=== PATIENT | female | born 1950 | race Caucasian/White ===

== ENCOUNTER 2016-09-28 04:16 | Observation (INO) | payer MEDICARE, OTHER ==
[~2016-09-28] VITALS: Ht 162.6 cm; Wt 75.0 kg
[2016-09-28] VITALS (14 sets, daily range): BP systolic 95–156; BP diastolic 51–70; PULSE 86–110; RESP 14–22; TEMP 97.1–100.6; O2SAT 96–100
[~2016-09-28 04:16] MED LIST: ACET325 PO; ASPI81TA21 PO; ATOR40TA49 PO; BACL10TA PO; BISA5TAB PO; CARV3.125 PO; CLOP75 PO; FERR324T4 PO; FOLI1TAB PO; GABA300 PO; GLUCTAB PO; LEVE500 PO; LEXA20TA PO; LISI5 PO; MULT-74 PO; RANI150 PO; WELL150T PO
--- NOTE | 2016-09-28 04:44 | PD ---
HPI Chief Complaint: Altered Mental Status Time Seen by Provider: 04:42 Travel History International Travel<30 days: No Contact w/Intl Traveler<30days: No Traveled to known affect area: No History of Present Illness HPI The patient is a 66-year-old female, resident of [facility], a [facility], who normally has a DNR of 13 and decreased to 9 tonight. She was sent in for altered mental status. She is a DNR status. She apparently has had multiple strokes. The [facility] noted dark stools. PFSH Past Medical History Arthritis: Yes Asthma: No Autoimmune Disease: No Blood Disorders: No Anxiety: No Depression: Yes Heart Rhythm Problems: No Cancer: Yes (SKIN CANCER, REMOVED) Cardiovascular Problems: Yes (DE 2002) High Cholesterol: Yes Chemotherapy: No Chest Pain: No Congestive Heart Failure: Yes COPD: No Cerebrovascular Accident: Yes Diabetes: Yes Patient Takes Glucophage: Yes (METFORMIN UNKNOWN) Diminished Hearing: No Endocrine: Yes Gastrointestinal Disorders: Yes GERD: Yes Glaucoma: No Genitourinary: Yes (INCONTINENT) Headaches: No Hepatitis: No Hiatal Hernia: No Hypertension: Yes Immune Disorder: No Kidney Stones: No Musculoskeletal: No Neurologic: Yes Psychiatric: Yes Reproductive: No Respiratory: No Migraines: No Myocardial Infarction: Yes Radiation Therapy: No Renal Failure: No Seizures: Yes Sickle Cell Disease: No Sleep Apnea: No Thyroid Disease: No Ulcer: No Tubal Ligation: Yes Past Surgical History Abdominal Surgery: No AICD: No Appendectomy: No Arteriovenous Shunt: No Cardiac Surgery: Yes (CABG [place] 2002) Cholecystectomy: No Coronary Artery Bypass Graft: Yes Ear Surgery: No Endocrine Surgery: No Eye Surgery: No Genitourinary Surgery: No Gynecologic Surgery: Yes (TUBAL 1981) Insulin Pump: No Joint Replacement: No Oral Surgery: No Pacemaker: No Thoracic Surgery: Yes Other Surgery: Yes Social History Alcohol Use: No (unable to assess) Tobacco Use: No Substance Use: No Allergies-Medications (Allergen,Severity, Reaction): Coded Allergies: Benztropine (Verified Allergy, Unknown, 09/28/16) Reported Meds & Prescriptions Reported Meds & Active Scripts Active Macrobid (Nitrofurantoin Monoh/Nitrofur Macro) 100 Mg Cap 100 Mg PO BID 10 Days Reported Zantac 75 (Ranitidine HCl) 75 Mg Tab 150 Mg PO DAILY Take 30 to 60 minutes before eating food or drinking beverages that cause heartburn. Wellbutrin SR 12 HR (Bupropion HCl) 150 Mg Tab 150 Mg PO Q12HR Tramadol Hydrochloride (Tramadol HCl) 50 Mg Tab 50 Mg PO Q4HR PRN Prinivil (Lisinopril) 10 Mg Tab 10 Mg PO DAILY Plavix (Clopidogrel Bisulfate) 75 Mg Tab 75 Mg PO DAILY Neurontin (Gabapentin) 300 Mg Cap 300 Mg PO BID Multi-Minerals (Multiple Minerals) 1 Tab Tab 1 Tab PO DAILY Metformin ER (Metformin HCl) 500 Mg [place] 500 Mg PO BID With evening meal Lipitor (Atorvastatin Calcium) 40 Mg Tab 40 Mg PO HS Lexapro (Escitalopram Oxalate) 20 Mg Tab 20 Mg PO DAILY Levetiracetam 500 Mg Tab 500 Mg PO BID Iron Complex (Iron Combinations) 1 Cap Cap 325 Mg PO BID Folic Acid 5 Mg Cap Unknown Dose PO DAILY Efudex Topical (Fluorouracil Topical) 5 % Cream 1 Applic TOPICAL TID Coreg (Carvedilol) 6.25 Mg Tab 6.25 Mg PO BID Bisacodyl EC (Bisacodyl) 5 Mg Tabec 5 Mg PO BID Baclofen 10 Mg Tab 10 Mg PO BID Aspirin 81 (Aspirin) 81 Mg Tabdr 81 Mg PO DAILY Acetaminophen 500 Mg Cap Unknown Dose PO Q4-6H PRN Review of Systems ROS Limitations: Altered Mental Status, Unresponsive Except as stated in HPI: all other systems reviewed are Neg Physical Exam Exam Limitations: Altered Mental Status, Poor Historian Narrative GENERAL: The patient is unresponsive, retracts slightly to pain, has contractures on her left upper extremity and moves toes slightly to foot stimulation. Her vital signs show normal. SKIN: Focused skin assessment warm/dry. HEAD: Atraumatic. Normocephalic. EYES: Pupils equal and round. No scleral icterus. No injection or drainage. ENT: No nasal bleeding or discharge. Mucous membranes pink and moist. NECK: Trachea midline. No JVD. CARDIOVASCULAR: Regular rate and rhythm. No murmur appreciated. RESPIRATORY: No accessory muscle use. Clear to auscultation. Breath sounds equal bilaterally. GASTROINTESTINAL: Abdomen soft, non-tender, nondistended. Hepatic and splenic margins not palpable. MUSCULOSKELETAL: No obvious deformities. No clubbing. No cyanosis. No edema. NEUROLOGICAL: Vision appears comatose. No obvious cranial nerve deficits. Motor grossly within normal limits. Normal speech Data Data Last Documented VS Vital Signs Date Time Temp Pulse Resp B/P Pulse Ox O2 Delivery O2 Flow Rate FiO2 09/28/16 06:28 86 16 95/60 100 Nasal Cannula 2 09/28/16 04:41 97.3 Orders Complete Blood Count With Diff (09/28/16 04:50) Comprehensive Metabolic Panel (09/28/16 04:50) Lipase (09/28/16 04:50) Urinalysis - C+S If Indicated (09/28/16 04:50) Iv Access Insert/Monitor (09/28/16 04:50) Ecg Monitoring (09/28/16 04:50) Oximetry (09/28/16 04:50) Sodium Chlor 0.9% 1000 Ml Inj (Ns 1000 M (09/28/16 04:50) Sodium Chloride 0.9% Flush (Ns Flush) (09/28/16 05:00) Urine Culture (09/28/16 05:15) Sodium Chlor 0.9% 1000 Ml Inj (Ns 1000 M (09/28/16 06:15) Ceftriaxone Inj (Rocephin Inj) (09/28/16 06:15) Chest, Pa & Lat (09/28/16 06:25) Ct Brain W/O Iv Contrast(Rout) (09/28/16 06:45) Sodium Chloride 0.9% Flush (Ns Flush) (09/28/16 06:45) Labs Laboratory Tests Test 09/28/16 09/28/16 04:55 05:15 White Blood Count 10.5 TH/MM3 Red Blood Count 3.46 MIL/MM3 Hemoglobin 10.3 GM/DL Hematocrit 32.9 % Mean Corpuscular Volume 95.1 FL Mean Corpuscular Hemoglobin 29.8 PG Mean Corpuscular Hemoglobin 31.3 % Concent Red Cell Distribution Width 14.1 % Platelet Count 213 TH/MM3 Mean Platelet Volume 9.0 FL Neutrophils (%) (Auto) 72.0 % Lymphocytes (%) (Auto) 20.2 % Monocytes (%) (Auto) 5.2 % Eosinophils (%) (Auto) 2.1 % Basophils (%) (Auto) 0.5 % Neutrophils # (Auto) 7.6 TH/MM3 Lymphocytes # (Auto) 2.1 TH/MM3 Monocytes # (Auto) 0.5 TH/MM3 Eosinophils # (Auto) 0.2 TH/MM3 Basophils # (Auto) 0.1 TH/MM3 CBC Comment DIFF FINAL Differential Comment Sodium Level 144 MEQ/L Potassium Level 4.4 MEQ/L Chloride Level 115 MEQ/L Carbon Dioxide Level 17.8 MEQ/L Anion Gap 11 MEQ/L Blood Urea Nitrogen 41 MG/DL Creatinine 1.83 MG/DL Estimat Glomerular Filtration 27 ML/MIN Rate Random Glucose 123 MG/DL Calcium Level 8.6 MG/DL Total Bilirubin 0.2 MG/DL Aspartate Amino Transf 16 U/L (AST/SGOT) Alanine Aminotransferase 22 U/L (ALT/SGPT) Alkaline Phosphatase 64 U/L Total Protein 6.2 GM/DL Albumin 3.2 GM/DL Lipase 252 U/L Urine Color YELLOW Urine Turbidity CLOUDY Urine pH 5.0 Urine Specific [place] 1.028 Urine Protein 100 mg/dL Urine Glucose (UA) NEG mg/dL Urine Ketones NEG mg/dL Urine Occult Blood MOD Urine Nitrite NEG Urine Bilirubin NEG Urine Urobilinogen 2.0 MG/DL Urine Leukocyte Esterase LARGE Urine RBC 128 /hpf Urine WBC /hpf Urine WBC Clumps MANY Urine Squamous Epithelial 1 /hpf Cells Urine Transitional Epithelial 1 /hpf Cells Urine Renal Epithelial Cells 15 /hpf Urine Bacteria MANY /hpf Urine Hyaline Casts 30 /lpf Urine Mucus MANY /lpf Microscopic Urinalysis Comment CULTURE INDICATED MDM Medical Decision Making Medical Screen Exam Complete: Yes Emergency Medical Condition: Yes Medical Record Reviewed: Yes Interpretation(s) The Accu-Chek is 123. The complete metabolic profile shows a bicarbonate of 17.8, BUN of 41, creatinine 1.63 with GFR of 27 and total protein of 6.2 and albumin of 3.2 but is otherwise normal. The lipase is normal. Urinalysis shows cloudy turbidity, specific gravity 1.028, 100 protein, moderate occult blood with large leukocyte esterase and 128 white cells and too numerous to count white cells and many white cell clumping's and many bacteria and culture is indicated. The complete metabolic profile shows a bicarbonate 17.8, BUN of 41, creatinine 1.83 with GFR of 27 and glucose 123 and total protein 6.2 and albumin 3.2 but is otherwise normal. The lipase is normal. Differential Diagnosis Altered mental status from: Sepsis, hypoglycemia, urinary tract infection, electrolyte disorder, ischemic CVA, intracranial bleedunlikely Narrative Course The patient has an altered mental status which may be from the urinary tract infection. The patient has an inability to eat and has altered mental status. This is likely due to an ischemic CVA. A CT scan will be done. The patient was unable to take the Macrobid tablets because of inability to eat/swallow. She is also given fluids, the patient is dehydrated. It is now 0700 and the patient is transferred to Dr. Abad. Diagnosis Primary Impression: Urinary tract infection Additional Impressions: Dehydration Altered mental status Unable to eat Additional Instructions: The patient is to be given increased liquids as best as possible. The Macrobid is one tablet twice daily for 10 days. Med/Other Pt SpecificInfo: Prescription(s) given Scripts Nitrofurantoin Monohydrate Macrocrystals (Macrobid)100 Mg [id number] Mg PO BID 10 Days Ref 0 Prov:Toni Chau MD 09/28/16 Disposition: 03 DISCHARGE TO SNF Condition: Stable Toni Chau MD Sep 28, 2016 04:44
[2016-09-28] MEDS ORDERED: SODIUM CHLOR 0.9% 1000 ML INJ 1,000 ML IV SCH (04:50)
[2016-09-28] MEDS ORDERED: ACET500C PO (04:59)
[2016-09-28] MEDS ORDERED: METF500T4 PO (04:59)
[2016-09-28] MEDS ORDERED: NEUR300C PO (04:59)
[2016-09-28] MEDS ORDERED: ZANTTAB9 PO (04:59)
[2016-09-28] MEDS ORDERED: BACL10TA PO (04:59)
[2016-09-28] MEDS ORDERED: TRAM-492 PO (04:59)
[2016-09-28] MEDS ORDERED: LEVE500T8 PO (04:59)
[2016-09-28] MEDS ORDERED: FOLI5CAP PO (04:59)
[2016-09-28] MEDS ORDERED: LEXA20TA PO (04:59)
[2016-09-28] MEDS ORDERED: PLAV75TA29 PO (04:59)
[2016-09-28] MEDS ORDERED: BUPR150CR PO (04:59)
[2016-09-28] MEDS ORDERED: MULT-74 PO (04:59)
[2016-09-28] MEDS ORDERED: IRONCAP2 PO (04:59)
[2016-09-28] MEDS ORDERED: FLEE5TAB PO (04:59)
[2016-09-28] MEDS ORDERED: ASPI-110 PO (04:59)
[2016-09-28] MEDS ORDERED: CARV6.25 PO (04:59)
[2016-09-28] MEDS ORDERED: LIPI40TA PO (04:59)
[2016-09-28] MEDS ORDERED: PRIN10TA PO (04:59)
[2016-09-28] MEDS ORDERED: [UNRECOGNIZED DRUG - CODE] TOPICAL (04:59)
[2016-09-28] MEDS ORDERED: SODIUM CHLORIDE 0.9% FLUSH 10 ML FLUSH IV FLUSH PRN ×2 (05:00→08:45)
[2016-09-28 05:10] LABS: AUTOMATED NEUTROPHIL # 7.6 TH/MM3 (1.8-7.7); BASOPHIL # 0.1 TH/MM3 (0-0.2); BASOPHIL % 0.5 % (0.0-2.0); EOSINOPHIL # 0.2 TH/MM3 (0-0.4); EOSINOPHIL % 2.1 % (0.0-4.0); HEMATOCRIT 32.9 % (35.0-46.0); HEMO FLAGS DIFF FINAL; LYMPH % 20.2 % (9.0-44.0); LYMPHOCYTE # 2.1 TH/MM3 (1.0-4.8); MEAN CELL VOLUME 95.1 FL (80.0-100.0); MEAN CORPUSCULAR HEMOGLOBIN 29.8 PG (27.0-34.0); MEAN CORPUSCULAR HGB CONC 31.3 % (32.0-36.0); MONO % 5.2 % (0.0-8.0); PLATELET COUNT 213 TH/MM3 (150-450); RED BLOOD COUNT 3.46 MIL/MM3 (4.00-5.30); RED CELL DISTRIBUTION WIDTH 14.1 % (11.6-17.2); WHITE BLOOD COUNT 10.5 TH/MM3 (4.0-11.0)
[2016-09-28 05:39] LABS: ALT (GPT) 22 U/L (10-53); ANION GAP 11 MEQ/L (5-15); AST (GOT) 16 U/L (15-37); BICARBONATE 17.8 MEQ/L (21.0-32.0); BLOOD UREA NITROGEN 41 MG/DL (7-18); CHLORIDE 115 MEQ/L (98-107); GLOMERULAR FILTRATION RATE 27 ML/MIN (>89); POTASSIUM 4.4 MEQ/L (3.5-5.1); SODIUM (NA) 144 MEQ/L (136-145)
[2016-09-28 05:41] LABS: ALKALINE PHOSPHATASE 64 U/L (45-117); TOTAL BILIRUBIN ADULT 0.2 MG/DL (0.2-1.0)
[2016-09-28 05:49] LABS: BACTERIA, URINE MANY /hpf; BLOOD, URINE MOD (NEG); GLUCOSE,URINE NEG (NEG); HYALINE CAST, URINE 30 /lpf (RARE); KETONE, URINE NEG (NEG); MUCUS URINE MANY /lpf (OCC); NITRITE,URINE NEG (NEG); RENAL EPITHELIAL CELLS 15 /hpf; SQUAMOUS EPITHELIAL CELL URINE 1 /hpf (0-5); TRANSITIONAL EPI CELLS, URINE 1 /hpf; URINE COLOR YELLOW (YELLW/STRAW)
[2016-09-28 05:55] LABS: COMMENT (UR) CULTURE INDICATED; CULTURE IF INDICATED CULTURE INDICATED
[2016-09-28] MEDS ORDERED: MACR100C2 PO (06:12)
[2016-09-28] MEDS ORDERED: cefTRIAXone INJ 1,000 MG in SODIUM CHLORIDE 0.9% INJ 100 ML IV ONE (06:15)
[2016-09-28] MEDS ORDERED: SODIUM CHLOR 0.9% 1000 ML INJ 1,000 ML IV ONE (06:15)
[2016-09-28] MEDS ORDERED: SODIUM CHLORIDE 0.9% FLUSH 10 ML FLUSH IVF PRN (06:45)
--- NOTE | 2016-09-28 07:02 | RADRPT ---
EXAM DATE/TIME: 09/28/2016 06:46 [facility] COMPARISON: CHEST SINGLE AP, November 24, 2015, 10:08. INDICATIONS : Short of breath. MEDICAL HISTORY : Myocardial infarction. Hypertension SURGICAL HISTORY : CABG. ENCOUNTER: Initial ACUITY: 1 day PAIN SCORE: Non-responsive. LOCATION: Bilateral chest FINDINGS: Cardiomegaly, median sternotomy wires and mediastinal clips are noted. EKG leads overlie the chest. T he lung volumes are diminished. There is linear atelectasis in the left midlung zone. No definite con solidation or effusion. Degenerative changes of the spine. CONCLUSION: Left midlung linear atelectasis. Timothy Medrano MD on September 28, 2016 at 6:58 Board Certified Radiologist. This report was verified electronically.
--- NOTE | 2016-09-28 07:54 | RADRPT ---
EXAM DATE/TIME: 09/28/2016 07:20 [facility] COMPARISON: CT BRAIN W/O CONTRAST, November 22, 2015, 15:23. INDICATIONS : Altered mental status. RADIATION DOSE: 64.27 CTDIvol (mGy) MEDICAL HISTORY : Hypertension. Seizures. Stroke. SURGICAL HISTORY : CABG ENCOUNTER: Initial ACUITY: 1 day PAIN SCALE: Non-responsive LOCATION: cranial TECHNIQUE: Multiple contiguous axial images were obtained of the head. Using automated exposure control and adj ustment of the mA and/or kV according to patient size, radiation dose was kept as low as reasonably a chievable to obtain optimal diagnostic quality images. FINDINGS: CEREBRUM: There is generalized atrophy with large area of encephalomalacia involving the right frontal and temp oral lobe with mild expected dilatation of the right lateral ventricle. There is calcification in the right frontal lobe. Right cerebral peduncle is atrophic. No evidence of midline shift, mass lesion, hemorrhage or acute infarction. No extra-axial fluid collections are seen. POSTERIOR FOSSA: The cerebellum and brainstem demonstrate no acute finding. The 4th ventricle is midline. The cerebe llopontine angle is unremarkable. EXTRACRANIAL: There is there complete opacification of the right maxillary sinus. SKULL: The calvaria is intact. No evidence of skull fracture. CONCLUSION: 1. Stable noncontrast head CT with large area of encephalomalacia involving the right frontal and tem poral lobe. No acute finding is identified. 2. Near complete opacification of the right maxillary sinus. Taran Anderson MD on September 28, 2016 at 7:49 Board Certified Radiologist. This report was verified electronically.
--- NOTE | 2016-09-28 08:40 | PD ---
Physical Exam Date Seen by Provider: Sep 28, 2016 Time Seen by Provider: 07:00 Narrative Patient signed out to me by Dr. Chau at 7 AM, please see his note for further details. Here for altered mental status from snf facility, apparently has a UTI, elevated BUN and creatinine concerning for underlying dehydration, and was plan for admission but is awaiting CT of the brain to rule out acute intracranial processes. Case initially had been [facility] with [facility] but admission is pending based on pending CT. Laboratory Tests Test 09/28/16 09/28/16 04:55 05:15 Red Blood Count 3.46 MIL/MM3 (4.00-5.30) Hemoglobin 10.3 GM/DL (11.6-15.3) Hematocrit 32.9 % (35.0-46.0) Mean Corpuscular Hemoglobin 31.3 % Concent (32.0-36.0) Neutrophils (%) (Auto) 72.0 % (16.0-70.0) Chloride Level 115 MEQ/L (98-107) Carbon Dioxide Level 17.8 MEQ/L (21.0-32.0) Blood Urea Nitrogen 41 MG/DL (7-18) Creatinine 1.83 MG/DL (0.50-1.00) Estimat Glomerular Filtration 27 ML/MIN (>89) Rate Random Glucose 123 MG/DL (74-106) Total Protein 6.2 GM/DL (6.4-8.2) Albumin 3.2 GM/DL (3.4-5.0) Urine Turbidity CLOUDY (CLEAR) Urine Protein 100 mg/dL (NEG-TRACE) Urine Occult Blood MOD (NEG) Urine Leukocyte Esterase LARGE (NEG) Urine RBC 128 /hpf (0-3) Urine WBC Clumps MANY (NONE) Urine Bacteria MANY /hpf (NONE) Urine Mucus MANY /lpf (OCC) Last [address] 09/28/16 0645 Signed Impressions: Service Date/Time: September 07:20 - CONCLUSION: 1. Stable noncontrast head CT with large area of encephalomalacia involving the right frontal and temporal lobe. No acute finding is identified. 2. Near complete opacification of the right maxillary sinus. Taran Anderson MD Chest X-Ray 09/28/16 0655 Signed Impressions: Service Date/Time: September 06:46 - CONCLUSION: Left midlung linear atelectasis. Timothy Medrano MD CT of the brain returns negative for any signs of acute processes. Patient has no focal neurological symptoms. Vital signs the been stable overnight. She had been given IV antibiotics and IV fluids in the ER. At this point, my plan would be to admit the patient for further treatment. Case was discussed with Dr. Wiggins for admission. Data Data Last Documented VS Vital Signs Date Time Temp Pulse Resp B/P Pulse Ox O2 Delivery O2 Flow Rate FiO2 09/28/16 07:33 88 17 99 Nasal Cannula 2 09/28/16 04:41 97.3 Orders Complete Blood Count With Diff (09/28/16 04:50) Comprehensive Metabolic Panel (09/28/16 04:50) Lipase (09/28/16 04:50) Urinalysis - C+S If Indicated (09/28/16 04:50) Iv Access Insert/Monitor (09/28/16 04:50) Ecg Monitoring (09/28/16 04:50) Oximetry (09/28/16 04:50) Sodium Chlor 0.9% 1000 Ml Inj (Ns 1000 M (09/28/16 04:50) Sodium Chloride 0.9% Flush (Ns Flush) (09/28/16 05:00) Urine Culture (09/28/16 05:15) Sodium Chlor 0.9% 1000 Ml Inj (Ns 1000 M (09/28/16 06:15) Ceftriaxone Inj (Rocephin Inj) (09/28/16 06:15) Chest, Pa & Lat (09/28/16 06:25) Ct Brain W/O Iv Contrast(Rout) (09/28/16 06:45) Sodium Chloride 0.9% Flush (Ns Flush) (09/28/16 06:45) Electrocardiogram (09/28/16 04:21) Admit Order (Ed Use Only) (09/28/16 08:37) Labs Laboratory Tests Test 09/28/16 09/28/16 04:55 05:15 White Blood Count 10.5 TH/MM3 Red Blood Count 3.46 MIL/MM3 Hemoglobin 10.3 GM/DL Hematocrit 32.9 % Mean Corpuscular Volume 95.1 FL Mean Corpuscular Hemoglobin 29.8 PG Mean Corpuscular Hemoglobin 31.3 % Concent Red Cell Distribution Width 14.1 % Platelet Count 213 TH/MM3 Mean Platelet Volume 9.0 FL Neutrophils (%) (Auto) 72.0 % Lymphocytes (%) (Auto) 20.2 % Monocytes (%) (Auto) 5.2 % Eosinophils (%) (Auto) 2.1 % Basophils (%) (Auto) 0.5 % Neutrophils # (Auto) 7.6 TH/MM3 Lymphocytes # (Auto) 2.1 TH/MM3 Monocytes # (Auto) 0.5 TH/MM3 Eosinophils # (Auto) 0.2 TH/MM3 Basophils # (Auto) 0.1 TH/MM3 CBC Comment DIFF FINAL Differential Comment Sodium Level 144 MEQ/L Potassium Level 4.4 MEQ/L Chloride Level 115 MEQ/L Carbon Dioxide Level 17.8 MEQ/L Anion Gap 11 MEQ/L Blood Urea Nitrogen 41 MG/DL Creatinine 1.83 MG/DL Estimat Glomerular Filtration 27 ML/MIN Rate Random Glucose 123 MG/DL Calcium Level 8.6 MG/DL Total Bilirubin 0.2 MG/DL Aspartate Amino Transf 16 U/L (AST/SGOT) Alanine Aminotransferase 22 U/L (ALT/SGPT) Alkaline Phosphatase 64 U/L Total Protein 6.2 GM/DL Albumin 3.2 GM/DL Lipase 252 U/L Urine Color YELLOW Urine Turbidity CLOUDY Urine pH 5.0 Urine Specific [place] 1.028 Urine Protein 100 mg/dL Urine Glucose (UA) NEG mg/dL Urine Ketones NEG mg/dL Urine Occult Blood MOD Urine Nitrite NEG Urine Bilirubin NEG Urine Urobilinogen 2.0 MG/DL Urine Leukocyte Esterase LARGE Urine RBC 128 /hpf Urine WBC /hpf Urine WBC Clumps MANY Urine Squamous Epithelial 1 /hpf Cells Urine Transitional Epithelial 1 /hpf Cells Urine Renal Epithelial Cells 15 /hpf Urine Bacteria MANY /hpf Urine Hyaline Casts 30 /lpf Urine Mucus MANY /lpf Microscopic Urinalysis Comment CULTURE INDICATED MDM Medical Record Reviewed: Yes Supervised Visit with DUSTIN: No Diagnosis Primary Impression: Urinary tract infection Additional Impressions: Altered mental status Unable to eat Dehydration Admitting Information Admitting Physician Requests: Admit Additional Instruction: The patient is to be given increased liquids as best as possible. The Macrobid is one tablet twice daily for 10 days. Scripts Nitrofurantoin Monohydrate Macrocrystals (Macrobid)100 Mg [id number] Mg PO BID 10 Days Ref 0 Prov:Toni Chau MD 09/28/16 Disposition: 03 DISCHARGE TO SNF Condition: Stable Akhil Colmenares MD Sep 28, 2016 08:40
[2016-09-28] MEDS ORDERED: NALOXONE HCL 0.4 MG/ML AMP IV PRN (08:45)
[2016-09-28] MEDS ORDERED: GLUCAGON 1 MG/ML VIAL OTHER PRN (08:45)
[2016-09-28] MEDS ORDERED: hydrALAZINE HCL 20 MG/ML VIAL IV PRN (08:45)
[2016-09-28] MEDS ORDERED: BISACODYL 10 MG SUPP RECTAL PRN (08:45)
[2016-09-28] MEDS ORDERED: DEXTROSE 50% IN WATER 50 ML VIAL(D50) IV PUSH PRN (08:45)
[2016-09-28] MEDS ORDERED: SENNOSIDES 8.6 MG TAB PO PRN (08:45)
[2016-09-28] MEDS ORDERED: ONDANSETRON HCL 4 MG/2 ML VIAL IVP PRN (08:45)
[2016-09-28] MEDS ORDERED: cloNIDine HCL 0.1 MG TAB PO PRN (08:45)
[2016-09-28] MEDS ORDERED: ACETAMINOPHEN 325 MG TAB PO PRN (08:45)
[2016-09-28] MEDS: SODIUM CHLORIDE 0.9% FLUSH 10 ML FLUSH IV FLUSH SCH ×2 (09:00→21:00)
[2016-09-28] MEDS ORDERED: levETIRAcetam 500 MG TAB PO SCH (09:00)
[2016-09-28] MEDS: GABAPENTIN 300 MG CAP PO SCH ×2 (09:00→21:00)
[2016-09-28] MEDS: BISACODYL EC 5 MG TABEC PO SCH ×2 (09:00→21:00)
[2016-09-28] MEDS: ESCITALOPRAM OXALATE 20 MG TAB PO SCH (09:00)
[2016-09-28] MEDS: CARVEDILOL 3.125 MG TAB PO SCH ×2 (10:00→21:00)
[2016-09-28] MEDS: FAMOTIDINE 20 MG TAB PO SCH ×2 (10:15→21:00)
[2016-09-28] MEDS ORDERED: PILL SPLITTER OTHER PRN (10:15)
[2016-09-28] MEDS ORDERED: traMADol HCL 50 MG TAB PO PRN (10:15)
[2016-09-28] MEDS: buPROPion HCL 150 MG SUSTAINED RELEASE TAB PO SCH ×2 (10:30→21:00)
[2016-09-28] MEDS ORDERED: levETIRAcetam INJ 500 MG in SODIUM CHLORIDE 0.9% INJ 100 ML IV PRN (10:30)
[2016-09-28] MEDS ORDERED: PANTOPRAZOLE SODIUM 40 MG VIAL IV PUSH PRN (10:30)
--- NOTE | 2016-09-28 10:48 | HHI.HP ---
HPI Service [facility] Primary Care Physician Brian Kelly MD Admission Diagnosis altered mental status/UTI Diagnoses: Chief Complaint: Altered mental status Travel History International Travel<30 Days: No Contact w/Intl Traveler <30 Da: No Traveled to Known Affected Are: No Sepsis Criteria SIRS Criteria (2 or more): Heart rate over 90 Sepsis Criteria (SIRS+source): Infect source susp/known History of Present Illness This is a [place] patient who was sent in for altered mental status. Usually has GCS of 13-14 but down to 9. ER workup shows abnormal urinalysis and was given IV Rocephin. She was also noted to be dehydrated with elevated BUN and received a total of 2 L IV fluid. Reportedly had a large black stool, patient on iron. At this time, patient is awake but not responsive and not following commands. She is contracted involving the left upper and left lower extremities. Left message with healthcare surrogate Ronit. Outside records reviewed. Case discussed with ER MBárbara. and RN. Noted to be tachypneic with audible crackles. Requested IV fluid to be discontinued and will give stat dose of IV Lasix. She has a DNR status. S Review of Systems ROS Limitations: Altered Mental Status Constitutional: DENIES: Diaphoretic episodes, Fatigue, Fever, Weight gain, Weight loss, Chills, Dizziness, Change in appetite, Night Sweats Endocrine: DENIES: Heat/cold intolerance, Polydipsia, Polyuria, Polyphagia Eyes: DENIES: Blurred vision, Diplopia, Vision loss, Photosensitivity Ears, nose, mouth, throat: DENIES: Tinnitus, Vertigo, Throat pain, Hoarseness, Epistaxis, Odynophagia Respiratory: DENIES: Cough, Wheezing, Hemoptysis, Sputum production, Shortness of breath Cardiovascular: DENIES: Chest pain, Palpitations, Syncope, Dyspnea on Exertion , PND, Lower Extremity Edema, Orthopnea, Claudication Gastrointestinal: DENIES: Abdominal pain, Black stools, Bloody stools, Constipation, Diarrhea, Nausea, Vomiting, Difficulty Swallowing, Anorexia Genitourinary: DENIES: Urinary frequency, Urinary incontinence, Urgency, Hematuria, Dysuria, Nocturia, Vaginal discharge Integumentary: DENIES: Rash Neurologic: COMPLAINS OF: Abnormal gait, Localized weakness, DENIES: Headache , Seizures, Tremor, Poor Balance Psychiatric: DENIES: Anxiety, Confusion, Depression, Hallucinations, Agitation , Suicidal Ideation, Homicidal Ideation, Delusions Past Family Social History Past Medical History Multiple CVA, arthritis, depression, skin cancer status post removal, coronary artery disease status post [place], hyperlipidemia, systolic heart failure, diabetes mellitus on metformin, GERD, urinary incontinence, hypertension and seizure disorder Past Surgical History CABG, tubal ligation Reported Medications Macrobid (Nitrofurantoin Monoh/Nitrofur Macro) 100 Mg Cap 100 Mg PO BID 10 Days Zantac 75 (Ranitidine HCl) 75 Mg Tab 150 Mg PO DAILY Take 30 to 60 minutes before eating food or drinking beverages that cause heartburn. Wellbutrin SR 12 HR (Bupropion HCl) 150 Mg Tab 150 Mg PO Q12HR Tramadol Hydrochloride (Tramadol HCl) 50 Mg Tab 50 Mg PO Q4HR PRN Prinivil (Lisinopril) 10 Mg Tab 10 Mg PO DAILY Plavix (Clopidogrel Bisulfate) 75 Mg Tab 75 Mg PO DAILY Neurontin (Gabapentin) 300 Mg Cap 300 Mg PO BID Multi-Minerals (Multiple Minerals) 1 Tab Tab 1 Tab PO DAILY Metformin ER (Metformin HCl) 500 Mg Humble 500 Mg PO BID With evening meal Lipitor (Atorvastatin Calcium) 40 Mg Tab 40 Mg PO HS Lexapro (Escitalopram Oxalate) 20 Mg Tab 20 Mg PO DAILY Levetiracetam 500 Mg Tab 500 Mg PO BID Iron Complex (Iron Combinations) 1 Cap Cap 325 Mg PO BID Folic Acid 5 Mg Cap Unknown Dose PO DAILY Efudex Topical (Fluorouracil Topical) 5 % Cream 1 Applic TOPICAL TID Coreg (Carvedilol) 6.25 Mg Tab 6.25 Mg PO BID Bisacodyl EC (Bisacodyl) 5 Mg Tabec 5 Mg PO BID Baclofen 10 Mg Tab 10 Mg PO BID Aspirin 81 (Aspirin) 81 Mg Tabdr 81 Mg PO DAILY Acetaminophen 500 Mg Cap Unknown Dose PO Q4-6H PRN Allergies: Coded Allergies: Benztropine (Verified Allergy, Unknown, 09/28/16) Family History Patient nonverbal Social History Does not smoke and drink Physical Exam Vital Signs Vital Signs Date Time Temp Pulse Resp B/P Pulse Ox O2 Delivery O2 Flow Rate FiO2 09/28/16 10:22 102 20 122/66 99 Nasal Cannula 2 09/28/16 07:33 88 17 99 Nasal Cannula 2 09/28/16 07:30 17 98 Nasal Cannula 2 09/28/16 06:28 86 16 95/60 100 Nasal Cannula 2 09/28/16 06:00 86 20 98 Nasal Cannula 2 09/28/16 04:41 97.3 09/28/16 04:23 93 14 118/63 100 Physical Exam GENERAL: This is a well-nourished, well-developed patient, in no mild distress with tachypnea. SKIN: No rashes, ecchymoses or lesions. Cool and dry. HEAD: Atraumatic. Normocephalic. No temporal or scalp tenderness. EYES: Pupils equal round and reactive. Extraocular motions intact. No scleral icterus. No injection or drainage. ENT: Nose without bleeding, purulent drainage or septal hematoma. Throat without erythema, tonsillar hypertrophy or exudate. Uvula midline. Airway patent. NECK: Trachea midline. No JVD or lymphadenopathy. Supple, nontender, no meningeal signs. CARDIOVASCULAR: Regular rate and rhythm without murmurs, gallops, or rubs. RESPIRATORY: Coarse breath sounds with crackles. Tachypneic GASTROINTESTINAL: Abdomen soft, non-tender, nondistended. No guarding. MUSCULOSKELETAL: Extremities without clubbing, cyanosis, or edema. No joint tenderness, effusion, or edema noted. No calf tenderness. Negative Homans sign bilaterally. NEUROLOGICAL: Awake but nonverbal and not following commands. Contracted left upper and left lower extremities. I Laboratory Laboratory Tests Test 09/28/16 09/28/16 04:55 05:15 White Blood Count 10.5 Red Blood Count 3.46 Hemoglobin 10.3 Hematocrit 32.9 Mean Corpuscular Volume 95.1 Mean Corpuscular Hemoglobin 29.8 Mean Corpuscular Hemoglobin 31.3 Concent Red Cell Distribution Width 14.1 Platelet Count 213 Mean Platelet Volume 9.0 Neutrophils (%) (Auto) 72.0 Lymphocytes (%) (Auto) 20.2 Monocytes (%) (Auto) 5.2 Eosinophils (%) (Auto) 2.1 Basophils (%) (Auto) 0.5 Neutrophils # (Auto) 7.6 Lymphocytes # (Auto) 2.1 Monocytes # (Auto) 0.5 Eosinophils # (Auto) 0.2 Basophils # (Auto) 0.1 CBC Comment DIFF FINAL Differential Comment Sodium Level 144 Potassium Level 4.4 Chloride Level 115 Carbon Dioxide Level 17.8 Anion Gap 11 Blood Urea Nitrogen 41 Creatinine 1.83 Estimat Glomerular Filtration 27 Rate Random Glucose 123 Calcium Level 8.6 Total Bilirubin 0.2 Aspartate Amino Transf 16 (AST/SGOT) Alanine Aminotransferase 22 (ALT/SGPT) Alkaline Phosphatase 64 Total Creatine Kinase 123 Total Protein 6.2 Albumin 3.2 Lipase 252 Urine Color YELLOW Urine Turbidity CLOUDY Urine pH 5.0 Urine Specific [place] 1.028 Urine Protein 100 Urine Glucose (UA) NEG Urine Ketones NEG Urine Occult Blood MOD Urine Nitrite NEG Urine Bilirubin NEG Urine Urobilinogen 2.0 Urine Leukocyte Esterase LARGE Urine RBC 128 Urine WBC Urine WBC Clumps MANY Urine Squamous Epithelial 1 Cells Urine Transitional Epithelial 1 Cells Urine Renal Epithelial Cells 15 Urine Bacteria MANY Urine Hyaline Casts 30 Urine Mucus MANY Microscopic Urinalysis Comment CULTURE INDICATED Date/Time Procedure Status Source Growth 09/28/16 05:15 Urine Culture Received Urine Clean Catch Pending Result Diagram: 09/28/16 0455 09/28/16 0455 Imaging Last Impressions Head CT 09/28/1645 Signed Impressions: Service Date/Time: September 07:20 - CONCLUSION: 1. Stable noncontrast head CT with large area of encephalomalacia involving the right frontal and temporal lobe. No acute finding is identified. 2. Near complete opacification of the right maxillary sinus. Taran Anderson MD Chest X-Ray 09/28/1625 Signed Impressions: Service Date/Time: September 06:46 - CONCLUSION: Left midlung linear atelectasis. Timothy Medrano MD Assessment and Plan Problem List: (1) Altered mental status ICD Code: R41.82 Status: Acute (2) Urinary tract infection ICD Code: N39.0 Status: Acute Assessment and Plan This is a [place] patient who was sent in for altered mental status. Has abnormal urinalysis and was given IV Rocephin. She was also noted to be dehydrated with elevated BUN and received a total of 2 L IV fluid. Reportedly had a large black stool, patient on iron. Urine tract infection. Sepsis suspect. Previous urine culture grew Proteus, we 'll continue urinalysis and monitor culture Encephalopathy likely secondary to above. Head CT without acute findings. Black stool. GI bleed suspect. Patient on iron. Blood counts stable. Continue PPI and repeat CBC in the morning. Hold antiplatelets for now aspirin and Plavix Chronic kidney disease stage 3-4. Patient received 2 L IVF. Avoid nephrotoxins. Check CK. Repeat BMP and magnesium in the morning Acute systolic heart failure secondary to fluid bolus and infection. Discontinue IV fluid and given a stat dose of Lasix 20 mg IV. CHF education, monitor weight and I/O Chronic medical conditions of Multiple CVA, arthritis, depression, skin cancer status post removal, coronary artery disease status post [place], hyperlipidemia, diabetes mellitus on metformin, GERD, urinary incontinence, hypertension and seizure disorder. Continue outpatient medications as appropriate. Monitor fingersticks with sliding scale coverage. Monitor BP with as needed antihypertensives. Seizure precautions 6 DVT prophylaxis with SCD and early ambulation. Hold pharmacological prophylaxis GI bleed suspect Awaiting return call from health care surrogate. Consider hospice Code Status DO NOT RESUSCITATE per records Discussed Condition With pt and ER staff Miles Wiggins MD Sep 28, 2016 10:48
[2016-09-28] MEDS: INSULIN ASPART SUPPLEMENTAL SCALE SQ SCH ×3 (11:28→21:00)
[2016-09-28] MEDS ORDERED: FUROSEMIDE 20 MG/2 ML VIAL IV PUSH ONE (12:30)
--- NOTE | 2016-09-28 13:59 | EKG ---
Date Performed: 09/28/2016 Time Performed: 04:21:42 PTAGE: 66 years EKG: Sinus rhythm WITH FIRST DEGREE AV BLOCK WITH OCCASIONAL VENTRICULAR PREMATURE COMPLEXES MARKED RIGHT AXIS DEVIATI ON RIGHT BUNDLE BRANCH BLOCK MODERATE T-WAVE ABNORMALITY, CONSIDER INFERIOR ISCHEMIA ABNORMAL ECG Com pared to prior tracing no significant change PREVIOUS TRACING 11/23/2015 22.30.22 DOCTOR: Brian Mendiola Interpretating Date/Time 09/28/2016 13:57:43
[2016-09-28] MEDS ORDERED: EFUDEX TOPICAL SCH (18:00)
[2016-09-28] MEDS ORDERED: ACETAMINOPHEN 650 MG SUPP RECTAL PRN (20:30)
[2016-09-28] MEDS: FERROUS SULFATE 325 MG (65 MG ELEMENTAL IRON) TAB PO SCH (21:00)
[2016-09-28] MEDS: ATORVASTATIN 40 MG TAB PO SCH (21:00)
[2016-09-28] MEDS: levETIRAcetam INJ 500 MG in SODIUM CHLORIDE 0.9% INJ 100 ML IV SCH (21:10)
[2016-09-29] VITALS (7 sets, daily range): BP systolic 78–190; BP diastolic 60–90; PULSE 70–104; RESP 18–19; TEMP 97.7–99.2; O2SAT 95–100
[2016-09-29] MEDS: cefTRIAXone INJ 1,000 MG in SODIUM CHLORIDE 0.9% INJ 100 ML IV SCH (06:38)
[2016-09-29 07:00] LABS: AUTOMATED NEUTROPHIL # 7.6 TH/MM3 (1.8-7.7); BASOPHIL % 0.4 % (0.0-2.0); EOSINOPHIL # 0.1 TH/MM3 (0-0.4); EOSINOPHIL % 0.8 % (0.0-4.0); HEMATOCRIT 31.7 % (35.0-46.0); HEMO FLAGS DIFF FINAL; LYMPH % 22.1 % (9.0-44.0); LYMPHOCYTE # 2.4 TH/MM3 (1.0-4.8); MEAN CELL VOLUME 93.8 FL (80.0-100.0); MEAN CORPUSCULAR HEMOGLOBIN 30.2 PG (27.0-34.0); MEAN CORPUSCULAR HGB CONC 32.1 % (32.0-36.0); MONO % 7.6 % (0.0-8.0); NEUT % 69.1 % (16.0-70.0); PLATELET COUNT 205 TH/MM3 (150-450); RED BLOOD COUNT 3.38 MIL/MM3 (4.00-5.30); RED CELL DISTRIBUTION WIDTH 14.2 % (11.6-17.2)
[2016-09-29] MEDS: INSULIN ASPART SUPPLEMENTAL SCALE SQ SCH ×4 (07:00→21:00)
[2016-09-29 07:29] LABS: BICARBONATE 20.1 MEQ/L (21.0-32.0); POTASSIUM 3.6 MEQ/L (3.5-5.1)
[2016-09-29] MEDS: FAMOTIDINE 20 MG TAB PO SCH ×2 (09:00→23:10)
[2016-09-29] MEDS: buPROPion HCL 150 MG SUSTAINED RELEASE TAB PO SCH ×2 (09:00→23:10)
[2016-09-29] MEDS: BISACODYL EC 5 MG TABEC PO SCH ×2 (09:00→21:00)
[2016-09-29] MEDS: ESCITALOPRAM OXALATE 20 MG TAB PO SCH (09:00)
[2016-09-29] MEDS: CARVEDILOL 3.125 MG TAB PO SCH ×2 (09:00→23:10)
[2016-09-29] MEDS: GABAPENTIN 300 MG CAP PO SCH ×2 (09:00→23:10)
[2016-09-29] MEDS: FERROUS SULFATE 325 MG (65 MG ELEMENTAL IRON) TAB PO SCH ×2 (09:00→23:10)
--- NOTE | 2016-09-29 09:59 | HHI.PR ---
Subjective Remarks Follow-up encephalopathy and UTI. She is awake and oriented to person. She is answering questions appropriately. She is also following simple commands. Agrees to have NGT if she doesn't pass swallowing. Still awaiting return healthcare surrogate. Discussed with RN, possible discharge back to SNF if she passes swallowing per ST. Discussed with case management Objective Vitals Vital Signs Date Time Temp Pulse Resp B/P Pulse Ox O2 Delivery O2 Flow Rate FiO2 09/29/16 08:19 99.2 100 18 190/88 97 09/29/16 04:05 98.6 100 19 78/ 100 09/28/16 23:57 98.6 09/28/16 22:45 22 09/28/16 22:39 97.9 110 22 156/70 97 09/28/16 21:00 110 09/28/16 20:03 100.6 106 18 132/60 98 09/28/16 14:51 97.1 105 20 127/61 99 09/28/16 13:20 96 22 111/60 96 Nasal Cannula 2 09/28/16 11:31 96 22 106/51 97 Nasal Cannula 2 09/28/16 10:22 102 20 122/66 99 Nasal Cannula 2 Result Diagram: 09/29/1618 09/29/16617 Imaging Last Impressions Head CT 09/28/16 0645 Signed Impressions: Service Date/Time: September 07:20 - CONCLUSION: 1. Stable noncontrast head CT with large area of encephalomalacia involving the right frontal and temporal lobe. No acute finding is identified. 2. Near complete opacification of the right maxillary sinus. Taran Anderson MD Chest X-Ray 09/28/1625 Signed Impressions: Service Date/Time: September 06:46 - CONCLUSION: Left midlung linear atelectasis. Timothy Medrano MD Objective Remarks GENERAL: This is a well-nourished, well-developed patient, in no distress SKIN: No rashes, ecchymoses or lesions. Cool and dry. HEAD: Atraumatic. Normocephalic. No temporal or scalp tenderness. EYES: Pupils equal round and reactive. Extraocular motions intact. No scleral icterus. No injection or drainage. ENT: Nose without bleeding, purulent drainage or septal hematoma. Throat without erythema, tonsillar hypertrophy or exudate. Uvula midline. Airway patent. NECK: Trachea midline. No JVD or lymphadenopathy. Supple, nontender, no meningeal signs. CARDIOVASCULAR: Regular rate and rhythm without murmurs, gallops, or rubs. RESPIRATORY: Decreased breath sounds GASTROINTESTINAL: Abdomen soft, non-tender, nondistended. No guarding. MUSCULOSKELETAL: Extremities without clubbing, cyanosis, or edema. No joint tenderness, effusion, or edema noted. No calf tenderness. Negative Homans sign bilaterally. NEUROLOGICAL: Awake, answering questions appropriately and following simple commands. Contracted left upper and left lower extremities. Procedures none A/P Problem List: (1) Altered mental status ICD Code: R41.82 Status: Acute (2) Urinary tract infection ICD Code: N39.0 Status: Acute Assessment and Plan This is a [place] patient who was sent in for altered mental status. Has abnormal urinalysis and was given IV Rocephin. She was also noted to be dehydrated with elevated BUN and received a total of 2 L IV fluid. Reportedly had a large black stool, patient on iron. Urine tract infection. Sepsis suspect. Previous urine culture grew Escherichia coli, we'll continue urinalysis and monitor culture negative to date Encephalopathy likely secondary to above. Head CT without acute findings. Improving I believe she is back at her baseline Black stool. GI bleed suspect. Patient on iron. Blood counts stable. Continue PPI and repeat CBC in the morning. Hold antiplatelets for now aspirin and Plavix Chronic kidney disease stage 3-4. Patient received 2 L IVF. Avoid nephrotoxins. Check CK. Repeat BMP and magnesium in the morning Acute systolic heart failure secondary to fluid bolus and infection. Improved status post stat dose of Lasix 20 mg IV. CHF education, monitor weight and I/O Chronic medical conditions of Multiple CVA, arthritis, depression, skin cancer status post removal, coronary artery disease status post [place], hyperlipidemia, diabetes mellitus on metformin, GERD, urinary incontinence, hypertension and seizure disorder. Continue outpatient medications as appropriate. Monitor fingersticks with sliding scale coverage. Monitor BP with as needed antihypertensives. Seizure precautions FEN. PO and gentle IVF DVT prophylaxis with SCD and early ambulation. Hold pharmacological prophylaxis GI bleed suspect Awaiting return call from health care surrogate. Consider hospice Discharge Planning Discharge patient to [facility] Condition on discharge: Improved Regular Diet as tolerated per ST Ad Ligia activity no driving Rx written: Ceftin Follow-up with primary care physician in one week Miles Wiggins MD Sep 29, 2016 09:59
[2016-09-29] MEDS ORDERED: NS + KCL 20 MEQ INJ 1,000 ML IV PRN (10:00)
[2016-09-29] MEDS ORDERED: TRAM-492 PO (10:02)
[2016-09-29] MEDS ORDERED: CEFT250T8 PO (10:02)
--- NOTE | 2016-09-29 10:03 | HHI.DCPOC ---
Discharge Care Plan Diagnosis: (1) Altered mental status (2) Urinary tract infection (3) Dehydration Your Health Problems Are: Difficulty with ADL Exercise Tolerance Goals to Promote Your Health * To prevent worsening of your condition and complications * To maintain your health at the optimal level Directions to Meet Your Goals Take your medications as prescribed Follow your dietary instruction Follow activity as directed Keep your appointments as scheduled Take your immunizations and boosters as scheduled If your symptoms worsen call your PCP, if no PCP go to Urgent Care Center or Emergency Room Smoking is Dangerous to Your Health. Avoid second hand smoke Call the 24-hour hour crisis hotline for domestic abuse at Miles Wiggins MD Sep 29, 2016 10:02
[2016-09-29] MEDS: levETIRAcetam INJ 500 MG in SODIUM CHLORIDE 0.9% INJ 100 ML IV SCH ×2 (13:12→23:10)
[2016-09-29] MEDS: SODIUM CHLORIDE 0.9% FLUSH 10 ML FLUSH IV FLUSH SCH ×2 (13:19→23:10)
[2016-09-29] MEDS: ATORVASTATIN 40 MG TAB PO SCH (23:10)
[2016-09-30 04:00] VITALS: BP 135/68; PULSE 90; RESP 20; TEMP 97.6; O2SAT 98
[2016-09-30] MEDS: cefTRIAXone INJ 1,000 MG in SODIUM CHLORIDE 0.9% INJ 100 ML IV SCH (06:41)
[2016-09-30] MEDS: INSULIN ASPART SUPPLEMENTAL SCALE SQ SCH ×2 (06:42→11:00)
[2016-09-30 06:56] LABS: BICARBONATE 19.7 MEQ/L (21.0-32.0); MAGNESIUM 1.8 MG/DL (1.5-2.5); POTASSIUM 3.7 MEQ/L (3.5-5.1)
[2016-09-30 07:27] LABS: HEMATOCRIT 29.6 % (35.0-46.0); MEAN CELL VOLUME 92.1 FL (80.0-100.0); MEAN CORPUSCULAR HEMOGLOBIN 31.4 PG (27.0-34.0); MEAN CORPUSCULAR HGB CONC 34.1 % (32.0-36.0); PLATELET COUNT 196 TH/MM3 (150-450); RED BLOOD COUNT 3.22 MIL/MM3 (4.00-5.30); RED CELL DISTRIBUTION WIDTH 13.6 % (11.6-17.2); WHITE BLOOD COUNT 11.6 TH/MM3 (4.0-11.0)
[2016-09-30 07:38] LABS: HEMO FLAGS AUTO DIFF
--- NOTE | 2016-09-30 07:52 | HHI.PR ---
Subjective Remarks Follow up for encephalopathy and UTI. The patient reports feeling "pretty good " today. She does report some occasional indigestion but states she always has that and usually it is relieved by Tums. She denies any medical complaints. Denies any fever/chills or dysuria. She is oriented to person, place (knows she resides at [place] and knows she is currently at [facility]), oriented to year and president but not month. She says her daughter is her surrogate and she lives in [place]. She also has a son who lives in her old home in [place]. She wants to go back to [place] today, she states "that's where I live now". Objective Vitals Vital Signs Date Time Temp Pulse Resp B/P Pulse Ox O2 Delivery O2 Flow Rate FiO2 09/30/16 04:00 97.6 90 20 135/68 98 09/29/16 23:22 98.7 97 18 147/90 100 09/29/16 20:00 100 09/29/16 19:38 98.2 104 18 139/70 97 09/29/16 15:29 70 18 142/86 96 09/29/16 12:26 97.7 98 18 127/60 95 09/29/16 08:19 99.2 100 18 190/88 97 I/O 09/29/16 09/29/16 09/29/16 09/30/16 09/30/16 09/30/16 07:00 15:00 23:00 07:00 15:00 23:00 Intake Total 470 ml Balance 470 ml Intake Oral 120 ml IV Total 350 ml # Voids 2 Result Diagram: 09/30/16 0530 09/30/16 0530 Imaging Last Impressions Head CT 09/28/16 0645 Signed Impressions: Service Date/Time: September 07:20 - CONCLUSION: 1. Stable noncontrast head CT with large area of encephalomalacia involving the right frontal and temporal lobe. No acute finding is identified. 2. Near complete opacification of the right maxillary sinus. Taran Anderson MD Chest X-Ray 09/28/16 0625 Signed Impressions: Service Date/Time: September 06:46 - CONCLUSION: Left midlung linear atelectasis. Timothy Medrano MD Objective Remarks GENERAL: Well-nourished, well-developed pleasant elderly female patient in NAD. SKIN: Warm and dry. No rash. HEENT: Normocephalic. Atraumatic.Pupils equal and round. Mucous membranes pink and moist. NECK: Supple. Trachea midline. CARDIOVASCULAR: Regular rate and rhythm. No murmur appreciated. RESPIRATORY: No accessory muscle use. Slightly decreased breath sounds at bilateral bases, otherwise clear to auscultation. Breath sounds equal bilaterally. GASTROINTESTINAL: Abdomen soft, non-tender, nondistended. Normoactive bowel sounds x4. MUSCULOSKELETAL: No obvious deformities. Extremities without clubbing, cyanosis , or edema. NEUROLOGICAL: Awake and alert, oriented to person, place, year/president. No obvious cranial nerve deficits. LUE and LLE contracture. Normal speech. PSYCHIATRIC: Appropriate mood and affect; insight and judgment normal. Procedures none Medications and IVs Current Medications Medications (Trade) Dose Ordered Sig/Selena Route Start Time Stop Time Status Last Admin (Rocephin Inj/NS Inj) 100 ml @ 200 mls/hr Q24H IV 09/29/16 07:00 09/30/16 06:41 (D50w (Vial) Inj) 25 ml UNSCH PRN IV PUSH 09/28/16 08:45 (Glucagon Inj) 1 mg UNSCH PRN OTHER 09/28/16 08:45 (Apresoline Inj) 10 mg Q6H PRN IV 09/28/16 08:45 (Catapres) 0.1 mg Q6H PRN PO 09/28/16 08:45 (NS Flush) 2 ml UNSCH PRN IV FLUSH 09/28/16 08:45 (NS Flush) 2 ml BID IV FLUSH 09/28/16 09:00 09/29/16 23:10 (Zofran Inj) 4 mg Q6H PRN IVP 09/28/16 08:45 (Dulcolax Supp) 10 mg DAILY PRN RECTAL 09/28/16 08:45 (Senokot) 17.2 mg Q12H PRN PO 09/28/16 08:45 (Narcan Inj) 0.4 mg UNSCH PRN IV 09/28/16 08:45 (Lipitor) 40 mg HS PO 09/28/16 21:00 09/29/16 23:10 (Dulcolax Ec) 5 mg BID PO 09/28/16 09:00 (Wellbutrin Sr) 150 mg Q12HR PO 09/28/16 10:30 09/29/16 23:10 (Coreg) 3.125 mg BID PO 09/28/16 10:00 09/29/16 23:10 (Lexapro) 20 mg DAILY PO 09/28/16 09:00 (Neurontin) 300 mg BID PO 09/28/16 09:00 09/29/16 23:10 (Keppra) 500 mg BID PO 09/28/16 09:00 Hold Patient Own Medication PT OWN MED: EFUDEX (FLUOROURA... TID TOPICAL 09/28/16 18:00 Hold (Ferrous Sulfate) 325 mg BID PO 09/28/16 21:00 09/29/16 23:10 (Pepcid) 10 mg BID PO 09/28/16 10:15 09/29/16 23:10 (Ultram) 50 mg Q4H PRN PO 09/28/16 10:15 (Pill Splitter) 1 ea UNSCH PRN OTHER 09/28/16 10:15 (Protonix Inj) 40 mg Q24H PRN IV PUSH 09/28/16 10:30 Acetaminophen 650 mg 650 mg Q6H PRN RECTAL 09/28/16 20:30 09/28/16 21:10 Levetriacetam 500 mg/Sodium Chloride 105 ml @ 420 mls/hr Q12HR IV 09/28/16 21:00 09/29/16 23:10 (NS + KCl 20 Meq Inj) 1,000 ml @ 42 mls/hr [id number] PRN IV 09/29/16 10:00 A/P Problem List: (1) Altered mental status ICD Code: R41.82 Status: Acute (2) Urinary tract infection ICD Code: N39.0 Status: Acute Assessment and Plan 66-year-old female send from [facility] for evaluation of altered mental status. Upon arrival, UA abnormal, given IV Rocephin. Also noted to be dehydrated with elevated BUN, received total 2L IVF. Reportedly patient also had black stool however is on iron supplement. Urinary tract infection: Sepsis suspect. Previous urine culture grew Escherichia coli, resistant to Cipro, sensitive to Rocephin. Preliminary urine culture with gram negative rods. Continue IV Rocephin for now, discharge on Ceftin po. Metabolic Encephalopathy: suspect secondary to above. Head CT without acute findings. Improving, appears she is back at her baseline Black stool: GI bleed suspect. Patient also on iron supplement. Hold antiplatelets for now aspirin and Plavix. H&H stable. Continue PPI. Restart antiplatelets at discharge. Chronic kidney disease stage 3-4. Patient received 2 L IVF. Avoid nephrotoxins. CPK wnl. Repeat BMP with much improvement, Cr decreased from 1.83 --> 0.83. Stable. Acute systolic heart failure secondary to fluid bolus and infection: Improved s /p stat dose of Lasix 20 mg IV. CHF education, monitor weight and I/O. Chronic medical conditions of Multiple CVA, arthritis, depression, skin cancer status post removal, coronary artery disease status post [place], hyperlipidemia, diabetes mellitus on metformin, GERD, urinary incontinence, hypertension and seizure disorder. Continue outpatient medications as appropriate. Monitor fingersticks with sliding scale coverage. Monitor BP with as needed antihypertensives. Seizure precautions. FEN. PO and gentle IVF. ST recommends pureed diet and thin liquids. DVT prophylaxis with SCD Discussed with Dr. Vazquez. Discharge Planning Discharge patient to [facility] Condition on discharge: Improved Heart Healthy Diet as tolerated, pureed, thin liquids Ad Ligia activity Rx written: Ceftin Follow-up with primary care physician Dr. Kelly within 1 week Susie Sampson PA-C Sep 30, 2016 7:52 am
[2016-09-30 07:57] LABS: BANDS 3 % (0-6); BASOPHILS 1 % (0-2); EOSINOPHILS 5 % (0-4); NEUTROPHIL # MANUAL DIFF 6.8 TH/MM3 (1.8-7.7); OVALOCYTES 1+ (NORMAL); POLYS (SEG NEUTROPHILS) 56 % (16-70); WBC DIFF SAMPLE 100
[2016-09-30 07:58] LABS: PLATELET ESTIMATE SMEAR NORMAL (NORMAL); PLATELET MORPHOLOGY CLUMPED (NORMAL); SCAN/DIFF FINAL DIFF MANUAL
[2016-09-30 08:27] VITALS: BP 135/65; PULSE 92; RESP 18; TEMP 97.5; O2SAT 95
[2016-09-30] MEDS ORDERED: CALCIUM CARBONATE 500 MG CHEWABLE TAB CHEW ONE (08:30)
[2016-09-30] MEDS: SODIUM CHLORIDE 0.9% FLUSH 10 ML FLUSH IV FLUSH SCH (09:00)
[2016-09-30] MEDS ORDERED: DOCUSATE SODIUM 50 MG/SENNA 8.6 MG TAB PO SCH (09:00)
[2016-09-30] MEDS: FAMOTIDINE 20 MG TAB PO SCH (10:15)
[2016-09-30] MEDS: BISACODYL EC 5 MG TABEC PO SCH (10:16)
[2016-09-30] MEDS: buPROPion HCL 150 MG SUSTAINED RELEASE TAB PO SCH (10:16)
[2016-09-30] MEDS: GABAPENTIN 300 MG CAP PO SCH (10:16)
[2016-09-30] MEDS: CARVEDILOL 3.125 MG TAB PO SCH (10:16)
[2016-09-30] MEDS: FERROUS SULFATE 325 MG (65 MG ELEMENTAL IRON) TAB PO SCH (10:16)
[2016-09-30] MEDS: ESCITALOPRAM OXALATE 20 MG TAB PO SCH (10:16)
[2016-09-30] MEDS: levETIRAcetam INJ 500 MG in SODIUM CHLORIDE 0.9% INJ 100 ML IV SCH (10:18)
[2016-09-30 12:18] VITALS: BP 134/60; PULSE 60; RESP 20; TEMP 98.6; O2SAT 95
[2016-09-30] MEDS ORDERED: CALCIUM CARBONATE 500 MG CHEWABLE TAB CHEW PRN (15:00)
== END 2016-09-30 14:44 ==
LOC: NEPC 04:16 → NEDA 08:39 → NEPFCDU 14:31
PROVIDERS: ADMIT Internal Medicine; ATTEND Internal Medicine
DX: N39.0 Urinary tract infection, site not specified (principal); I25.2 Old myocardial infarction; I13.0 Hypertensive heart and chronic kidney disease with heart failure and stage 1 through stage 4 chronic kidney disease, or unspecified chronic kidney disease; N18.4 Chronic kidney disease, stage 4 (severe); I50.21 Acute systolic (congestive) heart failure; E11.22 Type 2 diabetes mellitus with diabetic chronic kidney disease; I25.10 Atherosclerotic heart disease of native coronary artery without angina pectoris; G93.41 Metabolic encephalopathy; K21.9 Gastro-esophageal reflux disease without esophagitis; G40.909 Epilepsy, unspecified, not intractable, without status epilepticus; E86.0 Dehydration; E78.5 Hyperlipidemia, unspecified; E78.00 Pure hypercholesterolemia, unspecified; Z66 Do not resuscitate; F32.9 Major depressive disorder, single episode, unspecified; M19.90 Unspecified osteoarthritis, unspecified site; Z86.73 Personal history of transient ischemic attack (TIA), and cerebral infarction without residual deficits; Z85.828 Personal history of other malignant neoplasm of skin; Z95.1 Presence of aortocoronary bypass graft; Z88.8 Allergy status to other drugs, medicaments and biological substances; Z79.84 Long term (current) use of oral hypoglycemic drugs; Z79.82 Long term (current) use of aspirin; Z79.02 Long term (current) use of antithrombotics/antiplatelets
CPT/HCPCS: 70450; 71020; 80048; 80053; 81001; 82550; 82948; 83690; 83735; 85007; 85025; 85027; 87040; 87077; 87086; 87186; 92526; 92610; 93005; 94150; 96374; 99285; G0378; G8996; G8997; G8998; J0696; J1940; J1953; J7030

== ENCOUNTER 2017-03-20 02:15 | Emergency (ER) | payer MEDICARE, OTHER ==
[~2017-03-20 02:15] MED LIST changes: -ACET325 PO; +ACET500C PO; +ASPI-110 PO; -ASPI81TA21 PO; -ATOR40TA49 PO; -BISA5TAB PO; +BUPR150CR PO; -CARV3.125 PO; +CARV6.25 PO; +CEFT250T8 PO; -CLOP75 PO; -FERR324T4 PO; +FLEE5TAB PO; -FOLI1TAB PO; +FOLI5CAP PO; -GABA300 PO; -GLUCTAB PO; +IRONCAP2 PO; -LEVE500 PO; +LEVE500T8 PO; +LIPI40TA PO; -LISI5 PO; +NEUR300C PO; +PLAV75TA29 PO; -RANI150 PO; +TRAM-492 PO; -WELL150T PO; +ZANTTAB9 PO; +[UNRECOGNIZED DRUG - CODE] TOPICAL
[2017-03-20 02:18] VITALS: BP 97/71; PULSE 63; RESP 21; TEMP 97.9; O2SAT 97
--- NOTE | 2017-03-20 02:54 | PD ---
HPI Chief Complaint: Altered Mental Status Time Seen by Provider: 02:20 Travel History International Travel<30 days: No Contact w/Intl Traveler<30days: No Traveled to known affect area: No History of Present Illness HPI The patient is a 66 year old female who presents to the [facility] emergency department with a history of altered mental status that was noted by her detention staff when he attempted to awaken her for medication administration in the middle of the night. The patient is normally a GCS of 13- 14, however her GCS was reportedly diminished to an 8. The patient on arrival is drowsy. The patient is arousable. The patient response to painful stimulation. The patient has left upper and left lower extremity weakness related to a prior stroke. The patient unfortunately is unable to provide any other significant history at this time. The patient's history is obtained from reviewing the electronic medical record. The patient was admitted for similar symptoms in September 2016 and was diagnosed with altered mentation related to dehydration and a urinary tract infection. 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 Arthritis: Yes Asthma: No Autoimmune Disease: No Blood Disorders: No Anxiety: No Depression: Yes Heart Rhythm Problems: No Cancer: Yes (SKIN CANCER, REMOVED) Cardiovascular Problems: Yes ([place] 2002) High Cholesterol: Yes Chemotherapy: No Chest Pain: No Congestive Heart Failure: Yes COPD: No Cerebrovascular Accident: Yes Diabetes: Yes Patient Takes Glucophage: No Diminished Hearing: No Endocrine: Yes Gastrointestinal Disorders: Yes GERD: Yes Glaucoma: No Genitourinary: Yes (INCONTINENT) Headaches: No Hepatitis: No Hiatal Hernia: No Hypertension: Yes Immune Disorder: No Kidney Stones: No Musculoskeletal: No Neurologic: Yes Psychiatric: Yes Reproductive: No Respiratory: No Migraines: No Myocardial Infarction: Yes Radiation Therapy: No Renal Failure: No Seizures: Yes Sickle Cell Disease: No Sleep Apnea: No Thyroid Disease: No Ulcer: No Tetanus Vaccination: Unknown Influenza Vaccination: Yes ?: Not Tubal Ligation: Yes Past Surgical History Narrative Surgical The patient's past surgical history is significant for coronary artery bypass grafting, bilateral tubal ligation. Abdominal Surgery: No AICD: No Appendectomy: No Arteriovenous Shunt: No Cardiac Surgery: Yes (CABG [place] 2002) Cholecystectomy: No Coronary Artery Bypass Graft: Yes Ear Surgery: No Endocrine Surgery: No Eye Surgery: No Genitourinary Surgery: No Gynecologic Surgery: Yes (TUBAL 1981) Insulin Pump: No Joint Replacement: No Oral Surgery: No Pacemaker: No Thoracic Surgery: Yes Other Surgery: Yes Social History Alcohol Use: No Tobacco Use: No Substance Use: No Allergies-Medications (Allergen,Severity, Reaction): Coded Allergies: benztropine (Unverified Allergy, Unknown, 03/20/17) Reported Meds & Prescriptions Reported Meds & Active Scripts Active Tramadol Hydrochloride (Tramadol HCl) 50 Mg Tab 50 Mg PO Q4HR PRN Reported Wellbutrin SR 12 HR (Bupropion HCl) 150 Mg Tab 150 Mg PO Q12HR Plavix (Clopidogrel Bisulfate) 75 Mg Tab 75 Mg PO DAILY Neurontin (Gabapentin) 300 Mg Cap 300 Mg PO BID Lipitor (Atorvastatin Calcium) 40 Mg Tab 40 Mg PO HS Lexapro (Escitalopram Oxalate) 20 Mg Tab 20 Mg PO DAILY Levetiracetam 500 Mg Tab 500 Mg PO BID Efudex Topical (Fluorouracil Topical) 5 % Cream 1 Applic TOPICAL TID Coreg (Carvedilol) 6.25 Mg Tab 6.25 Mg PO BID Bisacodyl EC (Bisacodyl) 5 Mg Tabec 5 Mg PO BID Baclofen 10 Mg Tab 10 Mg PO BID Aspirin 81 (Aspirin) 81 Mg Tabdr 81 Mg PO DAILY Review of Systems ROS Limitations: Poor Historian Neurologic: Positive: Change in Mentation Physical Exam Narrative General: The patient is a well-developed well-nourished female in no acute distress, drowsy on arrival although arousable to voice. Head and Neck exam: Head is normocephalic atraumatic. Eyes: EOMI, pupils are equal round and reactive to light. Nose: Midline septum with pink mucous membranes Mouth: Dentition unremarkable. Moist mucus membranes. Posterior oropharynx is not erythematous. No tonsillar hypertrophy. Uvula midline. Airway patent. Neck: No palpable lymphadenopathy. No nuchal rigidity. No thyromegaly. Cardiovascular: Regular rate and rhythm without murmurs, gallops, or rubs. Lungs: Clear to auscultation bilaterally. No wheezes, rhonchi, or rales. Abdomen: Soft, without tenderness to palpation in all 4 quadrants of the abdomen. No guarding, rebound, or rigidity. Normal bowel sounds are audible. No tenderness on palpation of McBurney's point. Negative Joy's sign. Extremities: No clubbing, cyanosis, or edema. 2+ pulses in all 4 extremities. No calf tenderness on palpation. Back: No costovertebral angle tenderness to palpation. Neurologic Exam: The patient is drowsy on arrival. She is arousable to voice. The patient response to painful stimulation. The patient has normal strength in the right upper and right lower extremity, left upper extremity is contracted with weakness and associated with left lower extremity weakness related to prior stroke. Skin Exam: No rash noted. Intact skin that is warm and dry. Data Data Last Documented VS Vital Signs Date Time Temp Pulse Resp B/P (MAP) Pulse Ox O2 Delivery O2 Flow Rate FiO2 03/20/17 05:00 69 20 137/77 (97) 100 Room Air 03/20/17 02:18 97.9 Orders Orders Electrocardiogram (03/20/17 03:16) Complete Blood Count With Diff (03/20/17 03:16) Comprehensive Metabolic Panel (03/20/17 03:16) Troponin I (03/20/17 03:16) B-Type Natriuretic Peptide (03/20/17 03:16) Prothrombin Time / Inr (Pt) (03/20/17 03:16) Act Partial Throm Time (Ptt) (03/20/17 03:16) Blood Culture (03/20/17 03:16) Lipase (03/20/17 03:16) Urinalysis - C+S If Indicated (03/20/17 03:16) Magnesium (Mg) (03/20/17 03:16) Chest, Single Ap (03/20/17 03:16) Ct Brain W/O Iv Contrast(Rout) (03/20/17 03:16) Iv Access Insert/Monitor (03/20/17 03:16) Ecg Monitoring (03/20/17 03:16) Oximetry (03/20/17 03:16) Lactic Acid Sepsis Protocol (03/20/17 03:16) Cath For Specimen (03/20/17 03:16) Sodium Chlorid 0.9% 500 Ml Inj (Ns 500 M (03/20/17 03:30) Urine Culture (03/20/17 05:00) Lidocaine 1% Inj (50 Ml) (Xylocaine 1% I (03/20/17 06:15) Ceftriaxone Inj (Rocephin Inj) (03/20/17 06:15) Labs Laboratory Tests Test 03/20/17 05:00 White Blood Count 6.8 TH/MM3 Red Blood Count 3.29 MIL/MM3 Hemoglobin 10.7 GM/DL Hematocrit 31.1 % Mean Corpuscular Volume 94.6 FL Mean Corpuscular Hemoglobin 32.5 PG Mean Corpuscular Hemoglobin Concent 34.3 % Red Cell Distribution Width 14.0 % Platelet Count 132 TH/MM3 Mean Platelet Volume 7.7 FL Neutrophils (%) (Auto) 66.3 % Lymphocytes (%) (Auto) 22.4 % Monocytes (%) (Auto) 7.5 % Eosinophils (%) (Auto) 3.1 % Basophils (%) (Auto) 0.7 % Neutrophils # (Auto) 4.5 TH/MM3 Lymphocytes # (Auto) 1.5 TH/MM3 Monocytes # (Auto) 0.5 TH/MM3 Eosinophils # (Auto) 0.2 TH/MM3 Basophils # (Auto) 0.0 TH/MM3 CBC Comment DIFF FINAL Differential Comment Prothrombin Time 11.2 SEC Prothromb Time International Ratio 1.0 RATIO Activated Partial Thromboplast Time 25.8 SEC Urine Color YELLOW Urine Turbidity HAZY Urine pH 5.5 Urine Specific [place] 1.013 Urine Protein NEG mg/dL Urine Glucose (UA) NEG mg/dL Urine Ketones NEG mg/dL Urine Occult Blood NEG Urine Nitrite NEG Urine Bilirubin NEG Urine Urobilinogen LESS THAN 2.0 MG/DL Urine Leukocyte Esterase MOD Urine RBC 2 /hpf Urine WBC 7 /hpf Urine WBC Clumps RARE Urine Squamous Epithelial Cells 1 /hpf Urine Bacteria MANY /hpf Microscopic Urinalysis Comment CATH-CULTURE IND Blood Urea Nitrogen 24 MG/DL Creatinine 1.04 MG/DL Random Glucose 102 MG/DL Total Protein 5.9 GM/DL Albumin 3.3 GM/DL Calcium Level 8.9 MG/DL Magnesium Level 2.2 MG/DL Alkaline Phosphatase 54 U/L Aspartate Amino Transf (AST/SGOT) 22 U/L Alanine Aminotransferase (ALT/SGPT) 25 U/L Total Bilirubin 0.4 MG/DL Sodium Level 142 MEQ/L Potassium Level 3.8 MEQ/L Chloride Level 111 MEQ/L Carbon Dioxide Level 23.8 MEQ/L Anion Gap 7 MEQ/L Estimat Glomerular Filtration Rate 53 ML/MIN Lactic Acid Level 1.1 mmol/L Troponin I LESS THAN 0.02 NG/ML B-Type Natriuretic Peptide 193 PG/ML Lipase 141 U/L MDM Medical Decision Making Medical Screen Exam Complete: Yes Emergency Medical Condition: Yes Medical Record Reviewed: Yes Interpretation(s) Last Impressions Head CT 03/20/17315 Signed Impressions: Service Date/Time: Monday, March 20, 2017 05:26 - CONCLUSION: 1. 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 No evidence of acute intracranial pathology. No masses are identified. Brian Ramirez MD Chest X-Ray 03/20/17315 Signed Impressions: Service Date/Time: Monday, March 20, 2017 03:22 - CONCLUSION: 1. Cardiomegaly. No acute pulmonary disease. Brian Ramirez MD Differential Diagnosis Dehydration, versus urinary tract infection, versus overmedication with sedative medications, versus encephalopathy, versus other intracranial process Narrative Course During the course of the patients emergency department visit, the patients history, examination, and differential diagnosis were reviewed with the patient. The patient had IV access obtained and blood work sent for analysis. The patient was placed on a radiation monitor with oximetry and blood pressure monitoring. An ECG was done on arrival. The patient's ECG reveals a sinus rhythm, heart rate of 68 with an intraventricular conduction delay, QRS duration is 149 ms, QTC 467 ms. The patient was difficult to obtain IV access in. As the patient was being observed, the patient became more awake and alert. The patient was initially provided normal saline a 500 mL bolus 1. The patients laboratory studies were reviewed and remarkable for a white count of 6.8, hemoglobin 10.7, platelets 132 with a normal differential, CMP is remarkable for chloride of 111, BUN 24, creatinine 1.04, troponin I less than 0.02, lipase 141, BNP 193, lactic acid 1.1. PT PTT within normal limits. Urinalysis shows moderate leukocyte esterase, 7 WBCs, rare clumps, many bacteria. Radiology studies were reviewed and remarkable for a chest x-ray that shows cardiomegaly, no acute cardiopulmonary disease. CT scan of the brain shows large old right middle cerebral artery infarct, no evidence of acute intracranial abnormality. The patient was given Rocephin 1 g IM for treatment of her urinary tract infection. The patient will be discharged home back to her detention on Bactrim. The patient is resting comfortably and feels better, is alert and in no distress. The patients results and examination findings were discussed with the patient. The repeat examination is unremarkable and benign. The history, exam, diagnostic testing, and current condition do not suggest any significant pathology to warrant further testing, continued ED treatment, admission, or surgical evaluation at this point. The vital signs have been stable. The patient does not have uncontrollable pain, intractable vomiting, or other significant symptoms. The patient's condition is stable and appropriate for discharge. The patient will pursue further outpatient evaluation with a primary care physician or other designated or consulting physician as indicated in the discharge instructions. The patient expressed understanding and was agreeable with this plan. Diagnosis Primary Impression: Altered mental status Qualified Codes: R40.0 - Somnolence Additional Impression: Urinary tract infection Qualified Codes: N39.0 - Urinary tract infection, site not specified Referrals: Primary Care Physician Patient Instructions: Altered Mental Status (ED), General Instructions, Urinary Tract Infection in Women (ED) Additional Instructions: Avoid oversedation with sedating medications. Med/Other Pt SpecificInfo: Prescription(s) given Scripts Sulfamethoxazole-Trimethoprim (Bactrim DS) 800-160 Mg Tab 1 TAB PO BID for Infection, #14 TAB 0 Refills Prov: Jen Flower MD 03/20/17 Disposition: 03 DISCHARGE TO SNF Condition: Stable Jen Flower MD Mar 20, 2017 02:54
[2017-03-20 03:15] VITALS: BP 118/62; PULSE 62; RESP 21; O2SAT 96
[2017-03-20] MEDS ORDERED: SODIUM CHLORID 0.9% 500 ML INJ 500 ML IV ONE (03:30)
--- NOTE | 2017-03-20 04:25 | RADRPT ---
EXAM DATE/TIME: 03/20/2017 03:22 [facility] COMPARISON: CHEST SINGLE AP, November 24, 2015, 10:08. INDICATIONS : Short of breath. MEDICAL HISTORY : Non-responsive. SURGICAL HISTORY : Non-responsive. ENCOUNTER: Initial ACUITY: 1 day PAIN SCORE: 0/10 LOCATION: Bilateral chest FINDINGS: The cardiac silhouette is normal in transverse diameter. Median sternotomy wires are present. A large hiatal hernia is present. The lungs are free of acute parenchymal opacity. No effusions are identifi ed. CONCLUSION: 1. Cardiomegaly. No acute pulmonary disease. Brian Ramirez MD on March 20, 2017 at 4:23 Board Certified Radiologist. This report was verified electronically.
[2017-03-20 05:00] VITALS: BP 137/77; PULSE 69; RESP 20; O2SAT 100
[2017-03-20 05:21] LABS: AUTOMATED NEUTROPHIL # 4.5 TH/MM3 (1.8-7.7); BASOPHIL % 0.7 % (0.0-2.0); EOSINOPHIL # 0.2 TH/MM3 (0-0.4); EOSINOPHIL % 3.1 % (0.0-4.0); HEMATOCRIT 31.1 % (35.0-46.0); HEMO FLAGS DIFF FINAL; LYMPH % 22.4 % (9.0-44.0); LYMPHOCYTE # 1.5 TH/MM3 (1.0-4.8); MEAN CELL VOLUME 94.6 FL (80.0-100.0); MEAN CORPUSCULAR HEMOGLOBIN 32.5 PG (27.0-34.0); MEAN CORPUSCULAR HGB CONC 34.3 % (32.0-36.0); MONO % 7.5 % (0.0-8.0); NEUT % 66.3 % (16.0-70.0); PLATELET COUNT 132 TH/MM3 (150-450); RED BLOOD COUNT 3.29 MIL/MM3 (4.00-5.30); WHITE BLOOD COUNT 6.8 TH/MM3 (4.0-11.0)
[2017-03-20 05:29] LABS: APTT (PATIENT) 25.8 SEC (24.3-30.1); PROTHROMBIN TIME - PATIENT 11.2 SEC (9.8-11.6)
[2017-03-20 05:33] LABS: BACTERIA, URINE MANY /hpf; BLOOD, URINE NEG (NEG); COMMENT (UR) CATH-CULTURE IND; CULTURE IF INDICATED CATH CULTURE IND; GLUCOSE,URINE NEG (NEG); KETONE, URINE NEG (NEG); NITRITE,URINE NEG (NEG); PH, URINE 5.5 (5.0-8.5); SQUAMOUS EPITHELIAL CELL URINE 1 /hpf (0-5); URINE COLOR YELLOW (YELLW/STRAW)
--- NOTE | 2017-03-20 05:39 | RADRPT ---
EXAM DATE/TIME: 03/20/2017 05:26 [facility] COMPARISON: CT BRAIN W/O CONTRAST, September 28, 2016, 7:20. INDICATIONS : Altered mental status. RADIATION DOSE: 30.55 CTDIvol (mGy) MEDICAL HISTORY : Stroke. Myocardial infarction. Gastroesophageal reflux disease.Congestive heart failure. Skin cancer. Seizure. SURGICAL HISTORY : CABG Tubal ligation. ENCOUNTER: Initial ACUITY: 1 day PAIN SCALE: 0/10 LOCATION: cranial TECHNIQUE: Multiple contiguous axial images were obtained of the head. Using automated exposure control and adj ustment of the mA and/or kV according to patient size, radiation dose was kept as low as reasonably a chievable to obtain optimal diagnostic quality images. DICOM format image data is available electro nically for review and comparison. FINDINGS: There is large old infarct in the right middle cerebral artery distribution with ex vacuo dilatation of the body the right lateral ventricle. No acute hemorrhage or infarction is seen. Posterior fossa s tructures are unremarkable. CONCLUSION: 1. 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 No evidence of acute intracranial pathology. No ma sses are identified. Brian Ramirez MD on March 20, 2017 at 5:36 Board Certified Radiologist. This report was verified electronically.
[2017-03-20 05:43] LABS: ALT (GPT) 25 U/L (10-53)
[2017-03-20 05:46] LABS: ALKALINE PHOSPHATASE 54 U/L (45-117); TOTAL BILIRUBIN ADULT 0.4 MG/DL (0.2-1.0)
[2017-03-20 05:55] LABS: ANION GAP 7 MEQ/L (5-15); AST (GOT) 22 U/L (15-37); BICARBONATE 23.8 MEQ/L (21.0-32.0); BLOOD UREA NITROGEN 24 MG/DL (7-18); CHLORIDE 111 MEQ/L (98-107); GLOMERULAR FILTRATION RATE 53 ML/MIN (>89); MAGNESIUM 2.2 MG/DL (1.5-2.5); POTASSIUM 3.8 MEQ/L (3.5-5.1); SODIUM (NA) 142 MEQ/L (136-145)
[2017-03-20] MEDS ORDERED: LIDOCAINE HCL 1% 50 ML VIAL IM ONE (06:15)
[2017-03-20] MEDS ORDERED: BACT800T5 PO (06:55)
[2017-03-20 08:13] VITALS: BP 149/68; PULSE 60; RESP 18; O2SAT 100
--- NOTE | 2017-03-21 07:43 | EKG ---
Date Performed: 03/20/2017 Time Performed: 05:16:25 PTAGE: 66 years EKG: Technically poor tracing There is a regular rhythm, which may be sinus, but there is a good bit of artifact present making interpretation difficult [place] rightward Right bundle branch block Non specific T wave change Compared to prior tracing no significant change. Recommend repeat tracing of b abhi quality. ABNORMAL ECG PREVIOUS TRACING : 03/20/2017 05.15 DOCTOR: Chuy Villagran Interpretating Date/Time 03/21/2017 07:41:18
== END 2017-03-20 08:42 ==
LOC: NEPC 02:15
DX: N39.0 Urinary tract infection, site not specified (principal); B96.1 Klebsiella pneumoniae [K. pneumoniae] as the cause of diseases classified elsewhere; B95.7 Other staphylococcus as the cause of diseases classified elsewhere; I50.9 Heart failure, unspecified; R94.31 Abnormal electrocardiogram [ECG] [EKG]
CPT/HCPCS: 36600; 70450; 71010; 80053; 81001; 83605; 83690; 83735; 83880; 84484; 85025; 85610; 85730; 86403; 87040; 87077; 87086; 87186; 87205; 93005; 96360; 96372; 99285; J0696; J7040; P9612